=== PATIENT | female | born 1975 | race Caucasian/White ===

== ENCOUNTER 2018-05-10 07:41 | Emergency (ER) | payer SELFPAY ==
--- NOTE | 2018-05-10 08:54 | ER Document Report ---
Addendum entered and electronically signed by OTIS AMEZQUITA FNP-C 05/10/18 09:06: Discharge - Discharge Clinical Impression: Strep throat Condition: Stable Disposition: HOME, SELF-CARE Instructions: Fever ([facility]), Sore Throat ([facility]), Strep Throat ([facility]) Additional Instructions: Strep Throat Your sore throat is due to the streptococcus germ (strep throat). Strep throat usually makes you feel quite ill with fever and aches, headache, swollen sore throat, and tender bumps under the angles of the jaw. Strep throat requires antibiotic treatment. Although the sore throat may go away by itself, complications such as rheumatic fever, kidney disease, or throat abscess can occur. We usually prescribe antibiotics by mouth. Be sure to take the medicine until it's gone. If you stop early, the strep may come back. If you are vomiting, are severely ill, or can't remember to take pills, we can give you an antibiotic shot. Take acetaminophen or ibuprofen for pain and fever. Sip frequent clear liquids, or use popsicles or ice chips. Anesthetic sprays or lozenges may help. Make sure the air in the room is not too dry. Avoid using decongestants or antihistamines. Call the doctor if there is no improvement in three days, or if you have difficulty breathing, increasing throat pain, high fever, rash, or frequent vomiting. Your rapid strep is positive. Take antibiotics as directed, take prednisone as directed. Salt water gurgles. Change toothbrush after 2 days. Wash hands frequently. Eat yogurt or probiotics while taking antibiotics as can cause diarrhea or loose stool. Return immediately for any new or worsening symptoms. Follow up with primary care provider, call tomorrow to make followup appointment. Prescriptions: Amoxicillin Trihydrate [Amoxil 500 mg Capsule] 500 mg PO TID #30 capsule Prednisone [Deltasone 20 mg Tablet] 3 tab PO DAILY 5 Days #15 tablet Forms: Return to Work Referrals: ALESSANDRA CHENG MD [ACTIVE STAFF] - Follow up in 3-5 days Original Note: HPI - HPI Time Seen by Provider: 05/10/18 08:10 Pain Level: 4 Notes: 42-year-old female presents to ED with complaints of sore throat for the last 3 days, has become progressively worse. Reports pain with swallowing and eating. Has not tried any [id number] medications. Has been exposed to strep throat. Reports low-grade fevers, denies chills. has not tried any salt water gargles. Pain is 4 out of 10, constantly stabbing. Denies any drooling, trismus, difficulty speaking, difficulty swallowing. Denies chest pain,palpitations, shortness of breath, dyspnea, nausea, vomiting, diarrhea, abdominal pain, hematuria,blurred vision, double vision, loss of vision, speech changes, LH, dizziness, syncope, headaches, wheezing, URI, neck pain, weakness, bowel or bladder dysfunction, saddle anesthesia, numbness or tingling in bilateral upper or lower extremities equally, muscle paralysis, weakness in bilateral upper or lower extremities equally or rash. - EENT EENT: REPORTS: Sore Throat - REPRODUCTIVE Reproductive: DENIES: : Past Medical History - General Information source: Patient - Social History Smoking Status: Current Every Day Smoker Family History: Reviewed & Not Pertinent Patient has suicidal ideation: No Patient has homicidal ideation: No Pulmonary Medical History: Reports: Hx COPD Renal/ Medical History: Denies: Hx Kidney Stones, Hx Peritoneal Dialysis Past Surgical History: Reports: Hx Section, Hx Tubal Ligation - Immunizations Hx Diphtheria, Pertussis, Tetanus Vaccination: Yes Vertical Provider Document - CONSTITUTIONAL Agree With Documented VS: Yes Notes: PHYSICAL EXAMINATION: GENERAL: Well-appearing, well-nourished and in no acute distress. HEAD: Atraumatic, normocephalic. EYES: Pupils equal round and reactive to light, extraocular movements intact, conjunctiva are normal. ENT: TM intact with bilateral serous effusion, no erythema. Nares boggy bilaterally, oropharynx with erythema with exudates. Moist mucous membranes. NECK: Normal range of motion, supple without lymphadenopathy LUNGS: Breath sounds clear to auscultation bilaterally and equal. No wheezes rales or rhonchi. HEART: Regular rate and rhythm without murmurs ABDOMEN: Soft, nontender, nondistended abdomen. No guarding, no rebound. No masses appreciated. Female : deferred Musculoskeletal: Normal range of motion, no pitting or edema. No cyanosis. NEUROLOGICAL: Cranial nerves grossly intact. Normal speech, normal gait. Normal sensory, motor exams PSYCH: Normal mood, normal affect. SKIN: Warm, Dry, normal turgor, no rashes or lesions noted. - INFECTION CONTROL TRAVEL OUTSIDE OF THE [place] IN LAST 30 DAYS: No Course - Re-evaluation Re-evalutation: 42-year-old female presents to the ED for evaluation of sore throat, rapid strep did come back positive. Patient is afebrile slightly tachycardic otherwise fine, in no distress. Presentation of several days of sore throat in an otherwise well-appearing patient. Rapid strep is positive. History and exam are not consistent with a retropharyngeal abscess or peritonsillar abscess. Airway is patent. No difficulty handling oral secretions. Vitals within normal limits. At this time will discharge with return precautions and follow-up recommendations. Verbal discharge instructions given a the bedside and opportunity for questions given. Medication warnings reviewed. Patient is in agreement with this plan and has verbalized understanding of return precautions and the need for primary care follow-up in the next 24-48 hours. After performing a Medical Screening Examination, I estimate there is LOW risk for ACUTE CORONARY SYNDROME, PULMONARY EMBOLI, RESPIRATORY FAILURE, SEPSIS OR MENINGITIS, thus I consider the discharge disposition reasonable. I have reevaluated this patient multiple times and no significant life threatening changes are noted. The patient and I have discussed the diagnosis and risks, and we agree with discharging home with close follow-up. We also discussed returning to the Emergency Department immediately if new or worsening symptoms occur. We have discussed the symptoms which are most concerning (e.g., changing or worsening pain, trouble swallowing or breathing, neck stiffness, fever) that necessitate immediate return. - Vital Signs Vital signs: Temp Pulse Resp BP Pulse Ox 98.7 F 110 H 16 119/67 98 05/10/18 07:47 05/10/18 07:47 05/10/18 07:47 05/10/18 07:47 05/10/18 07:47 Discharge - Discharge Clinical Impression: Strep throat Condition: Stable Disposition: HOME, SELF-CARE Instructions: Strep Throat ([facility]), Fever ([facility]), Sore Throat ([facility]) Additional Instructions: Strep Throat Your sore throat is due to the streptococcus germ (strep throat). Strep throat usually makes you feel quite ill with fever and aches, headache, swollen sore throat, and tender bumps under the angles of the jaw. Strep throat requires antibiotic treatment. Although the sore throat may go away by itself, complications such as rheumatic fever, kidney disease, or throat abscess can occur. We usually prescribe antibiotics by mouth. Be sure to take the medicine until it's gone. If you stop early, the strep may come back. If you are vomiting, are severely ill, or can't remember to take pills, we can give you an antibiotic shot. Take acetaminophen or ibuprofen for pain and fever. Sip frequent clear liquids, or use popsicles or ice chips. Anesthetic sprays or lozenges may help. Make sure the air in the room is not too dry. Avoid using decongestants or antihistamines. Call the doctor if there is no improvement in three days, or if you have difficulty breathing, increasing throat pain, high fever, rash, or frequent vomiting. Your rapid strep is positive. Take antibiotics as directed, take prednisone as directed. Salt water gurgles. Change toothbrush after 2 days. Wash hands frequently. Eat yogurt or probiotics while taking antibiotics as can cause diarrhea or loose stool. Return immediately for any new or worsening symptoms. Follow up with primary care provider, call tomorrow to make followup appointment. Prescriptions: Amoxicillin Trihydrate [Amoxil 500 mg Capsule] 500 mg PO TID #30 capsule Prednisone [Deltasone 20 mg Tablet] 3 tab PO DAILY 5 Days #15 tablet Forms: Return to Work Referrals: ALESSANDRA CHENG MD [ACTIVE STAFF] - Follow up in 3-5 days
[2018-05-10 09:16] VITALS: BP 119/59
== END 2018-05-10 09:03 | disposition home or self-care (01) ==
LOC: ER 07:41
DX: J02.0 Streptococcal pharyngitis (principal); F17.200 Nicotine dependence, unspecified, uncomplicated; Z98.51 Tubal ligation status
CPT/HCPCS: 87880; 99283

== ENCOUNTER 2018-05-30 04:08 | Emergency (ER) | payer SELFPAY ==
[2018-05-30 04:20] VITALS: BP 144/79
== END 2018-05-30 04:35 | disposition left against medical advice (07) ==
LOC: ER 04:08
DX: Z53.21 Procedure and treatment not carried out due to patient leaving prior to being seen by health care provider (principal)

== ENCOUNTER 2018-06-04 02:56 | Emergency (ER) | payer SELFPAY ==
[2018-06-04] MEDS ORDERED: NORMAL SALINE 1000 ML 1,000 ML IV ONE ×2 (03:58→11:19)
[2018-06-04] MEDS ORDERED: LORAZEPAM INJ 2 MG/1 ML VIAL IV ONE ×6 (03:58→16:14)
--- NOTE | 2018-06-04 04:00 | ER Document Report ---
ED Substance Abuse / Acc. OD - General TRAVEL OUTSIDE OF THE [place] IN LAST 30 DAYS: No <JENS BOLIVAR - Last Filed: 06/04/18 08:12> <SHANTA BANUELOS - Last Filed: 06/05/18 05:47> - General Chief Complaint: Drug Abuse Stated Complaint: WITHDRAW Time Seen by Provider: 06/04/18 03:48 Primary Care Provider: [facility] [Provider Group] - Follow up tomorrow Notes: Patient is a 42-year-old female that comes emergency department for chief complaint of feeling bad after she snorted what she thought was heroin. She states that she has a dependency on methadone, ran out of methadone, so her friend of her heroin and she snorted this. She states afterwards she started feeling anxious, jittery, she vomited multiple times. She denies recreational drugs otherwise. She states that she actually is not prescribed methadone, she states that she used to be. She states now she has a dealer. She denies fever, she denies chest pain or abdominal pain, she states that she just feels like she cannot hold still and she is still nauseated. She also has a cramping sensation in her legs. (EJNS BOLIVAR) - Related Data Allergies/Adverse Reactions: No Known Allergies Allergy (Verified 06/04/18 04:34) Past Medical History - General Information source: Patient - Social History Smoking Status: Current Every Day Smoker Frequency of alcohol use: Occasional Drug Abuse: Heroin, Prescription drugs Lives with: Friend Family History: Reviewed & Not Pertinent Pulmonary Medical History: Reports: Hx COPD Renal/ Medical History: Denies: Hx Kidney Stones, Hx Peritoneal Dialysis Past Surgical History: Reports: Hx Section, Hx Tubal Ligation - Immunizations Hx Diphtheria, Pertussis, Tetanus Vaccination: Yes <JENS BOLIVAR - Last Filed: 06/04/18 08:12> Review of Systems - Review of Systems Constitutional: No symptoms reported EENT: No symptoms reported Cardiovascular: No symptoms reported Respiratory: No symptoms reported Gastrointestinal: No symptoms reported Genitourinary: No symptoms reported Female Genitourinary: No symptoms reported Musculoskeletal: No symptoms reported Skin: No symptoms reported Hematologic/Lymphatic: No symptoms reported Neurological/Psychological: See HPI <JENS BOLIVAR - Last Filed: 06/04/18 08:12> Physical Exam <JENS BOLIVAR - Last Filed: 06/04/18 08:12> - Vital signs Vitals: Temp Pulse Resp BP Pulse Ox 98.7 F 118 H 24 H 113/70 97 06/04/18 03:05 06/04/18 03:05 06/04/18 03:05 06/04/18 03:05 06/04/18 03:05 - Notes Notes: GENERAL: Awake, agitated, cannot hold still HEAD: Normocephalic, atraumatic. EYES: Pupils dilated. Equal and reactive to light. Extraocular movements intact. ENT: Oral mucosa moist, tongue midline. Oropharynx unremarkable. Airway patent. Nares patent, no nasal septal hematoma, TM's intact. NECK: Full range of motion. Supple. Trachea midline. LUNGS: Clear to auscultation bilaterally, no wheezes, rales, or rhonchi. No respiratory distress. HEART: Tachycardia, normal rhythm. No murmur. ABDOMEN: Soft, non-tender. Non-distended. Bowel sounds present in all 4 quadrants. GENITOURINARY: Deferred EXTREMITIES: Moves all 4 extremities spontaneously. No edema, normal radial and dorsalis pedis pulses bilaterally. No cyanosis. BACK: no cervical, thoracic, lumbar midline tenderness. NEUROLOGICAL: Alert and responsive. GCS of 15. PSYCH: Agitated, very restless, she will answer questions but cannot seem to relax or stop moving. (JENS BOLIVAR) Course - Laboratory Result Diagrams: 06/04/18 03:42 06/04/18 03:42 <JENS BOLIVAR - Last Filed: 06/04/18 08:12> - Laboratory Result Diagrams: 06/04/18 03:42 06/04/18 03:42 <SHANTA BANUELOS - Last Filed: 06/05/18 05:47> - Re-evaluation Re-evalutation: Patient is extremely restless, rolling all over the bed, she will give me a history but she persistently is groaning, crying, stating she needs to feel better. Patient will be given Ativan initially. Patient does not appear to have taken heroin tonight, her pupils are dilated, she is tachycardic and extremely restless and agitated. She states she is not sure what she might have snorted if it was not heroin. Patient persistently getting up, falling over. Patient was partially caught and fell against the glass door, patient given additional Ativan with no obvious effect. Given Haldol. Discussed with Dr. Banuelos. Patient got up and almost fell again, she was assisted at bedside to go to the bathroom, however it is getting up again. Dr. Banuelos recommends soft restraints. CBC shows mild leukocytosis. Nonspecific. Soft benign abdomen, clear lungs, no fever. Chemistry unremarkable. Urinalysis unremarkable. EKG does not show QT prolongation or concerning finding. Drug screen shows only opiates. Nonspecific. 06/04/18 I tried to discuss with patient at bedside, offered her to release the restraints if she was calm, stop screaming, was not getting up and falling. Patient agrees to this but if she is released she immediately jumps up, screaming, and falling. Therefore she was placed in stronger restraints. Discussed with Dr. Banuelos. Discussed with patient again but now she is just persistently demanding that she wants to get up and get around because she is "going crazy". Patient still writhing around. Appears to be under the influence of some sort of stimulant. She was given additional Haldol. 06/04/18 07:06 Patient had to be given more Ativan still. She finally resting calmly, heart rate is now 110. She will need to be monitored until effects of suspected stimulant wear off. 06/04/18 08:12 Patient still intermittently falling asleep, waking up and screaming. She remains conversational with making demands but she is not directable at all. Appears to still be under the influence of some sort of substance. Report and h andout given to Ephraim Rodriguez PA-C at this time. Dr. Ruiz aware of patient's situation/condition. (JENS BOLIVAR) 06/05/18 05:46 I have reevaluated the patient and made another note on the patient. She is awake alert and ambulate without difficulty. She is offered resources for drug abuse but patient prefers to go to [facility] on her own. She denies any psychiatric difficulties at this time denies depression or suicidal homicidal ideations is not on to the mental health at this time. Patient appears appropriate at this time and is ambulate well without any difficulties. She will be discharged home. Dictation of this chart was performed using voice recognition software; therefore, there may be some unintended grammatical errors. (SHANTA BANUELOS) - Vital Signs Vital signs: Temp Pulse Resp BP Pulse Ox 98.5 F 99 17 128/68 H 95 06/05/18 05:25 06/04/18 20:00 06/04/18 23:00 06/05/18 05:01 06/05/18 05:01 - Laboratory Laboratory results interpreted by me: 06/04/18 06/04/18 06/04/18 03:42 03:42 03:42 WBC 14.5 H RDW 15.6 H Absolute Neutrophils 10.1 H Creatinine 0.48 L Glucose 172 H Salicylates < 1.0 L Acetaminophen < 10 L Discharge <JENS BOLIVAR - Last Filed: 06/04/18 08:12> <SHANTA BANUELOS - Last Filed: 06/05/18 05:47> - Discharge Clinical Impression: Substance abuse Condition: Stable Disposition: HOME, SELF-CARE Additional Instructions: Do not take any medications that are not prescribed. Street/illegal/recreational drugs are very dangerous and continue use will result in your . Follow up with the referral listed for treatment of substance abuse issues, withdrawal, and additional mental health. Return for any concerning symptoms or something is not right. Forms: Return to Work Referrals: [facility] [Provider Group] - Follow up tomorrow
[2018-06-04 04:21] LABS: ABSOLUTE BASOPHILS # (AUTO) 0.1 10^3/uL (0.0-0.2); ABSOLUTE EOSINOPHILS # (AUTO) 0.1 10^3/uL (0.0-0.6); ABSOLUTE LYMPHOCYTES (AUTO) 3.5 10^3/uL (0.5-4.7); ABSOLUTE MONOCYTES (AUTO) 0.8 10^3/uL (0.1-1.4); ABSOLUTE NEUT (AUTO) 10.1 10^3/uL (1.7-8.2); BASOPHILS % (AUTO) 0.4 % (0-2); EOSINOPHILS % (AUTO) 0.5 % (0-6); HEMATOCRIT 37.6 % (36.0-47.0); HEMOGLOBIN 12.5 g/dL (12.0-15.5); LYMPHOCYTES % (AUTO) 24.2 % (13-45); MEAN CORPUSCULAR HEMOGLOBIN 27.6 pg (27.0-33.4); MEAN CORPUSCULAR HGB CONC 33.1 g/dL (32.0-36.0); MEAN CORPUSCULAR VOLUME 83 fl (80-97); MONOCYTES % (AUTO) 5.3 % (3-13); PLATELET COUNT 369 10^3/uL (150-450); RED BLOOD COUNT 4.51 10^6/uL (3.72-5.28); RED CELL DISTRIBUTION WIDTH 15.6 % (11.5-14.0); SEGMENTED NEUTROPHILS % (AUTO) 69.6 % (42-78); TOTAL CELLS COUNTED % (AUTO) 100 %; WHITE BLOOD COUNT 14.5 10^3/uL (4.0-10.5)
[2018-06-04 04:44] LABS: ALANINE AMINOTRANSFERASE 11 U/L (9-52); ALKALINE PHOSPHATASE 89 U/L (38-126); ANION GAP 9 (5-19); ASPARTATE AMINO TRANSFERASE 29 U/L (14-36); BILIRUBIN,DIRECT 0.3 mg/dL (0.0-0.4); BILIRUBIN,TOTAL 0.4 mg/dL (0.2-1.3); BLOOD UREA NITROGEN 11 mg/dL (7-20); CALCIUM 9.6 mg/dL (8.4-10.2); CARBON DIOXIDE 24 mmol/L (22-30); CHLORIDE 107 mmol/L (98-107); GLUCOSE 172 mg/dL (75-110); LIPASE 47.7 U/L (23-300); POTASSIUM 3.9 mmol/L (3.6-5.0); SODIUM 140.2 mmol/L (137-145); TOTAL PROTEIN 7.4 g/dL (6.3-8.2)
[2018-06-04] MEDS ORDERED: HALOPERIDOL LACTATE INJ 5 MG/1 ML VIAL IM ONE ×2 (04:59→05:45)
[2018-06-04 05:03] LABS: APPEARANCE,URINE SLIGHTLY-CLOUDY; BILIRUBIN,URINE NEGATIVE (NEGATIVE); COLOR,URINE STRAW; GLUCOSE, URINE NEGATIVE (NEGATIVE); KETONES,URINE NEGATIVE (NEGATIVE); LEUKOCYTE ESTERASE,URINE NEGATIVE (NEGATIVE); NITRITE,URINE NEGATIVE (NEGATIVE); PROTEIN,URINE NEGATIVE (NEGATIVE); UROBILINOGEN,URINE NEGATIVE mg/dL (<2.0)
[2018-06-04 05:25] LABS: URINE AMPHETAMINES SCREEN NEGATIVE; URINE BARBITURATES SCREEN NEGATIVE; URINE BENZODIAZEPINES SCREEN NEGATIVE; URINE COCAINE SCREEN NEGATIVE; URINE MARIJUANA (THC) SCREEN NEGATIVE; URINE METHADONE SCREEN NEGATIVE; URINE PHENCYCLIDINE SCREEN NEGATIVE
--- NOTE | 2018-06-04 07:01 | EKG REPORT ---
SEVERITY:- OTHERWISE NORMAL ECG - SINUS TACHYCARDIA : Confirmed by: Fab Baer 04-Jun-2018 07:00:33
[2018-06-04 07:44] LABS: ACETAMINOPHEN < 10 ug/mL (10-30); ALCOHOL < 10 mg/dL (NONE DETECTED); SALICYLATE < 1.0 mg/dL (2.0-20.0)
[2018-06-04] MEDS ORDERED: DIPHENHYDRAMINE HCL 50 MG/ML VIAL IV ONE (09:10)
[2018-06-04] MEDS ORDERED: ZIPRASIDONE MESYLATE INJ/PF 20 MG SDV IM ONE (16:50)
--- NOTE | 2018-06-04 19:29 | ER Document Report ---
Doctor's Note Notes: Patient is a 42-year-old female that presents to the emergency department for chief complaint of agitation, likely drug overdose. Patient was signed out to me, was found to be agitated, in four-point restraints, had been given Haldol, Ativan, and multiple doses to help control the patient's agitation. It is suspected that the patient had taken a sympathomimetic, in addition to heroin. PHYSICAL EXAMINATION: Vital signs reviewed, nursing noted reviewed. GENERAL: Patient appears rather agitated on exam, HEAD: Atraumatic, normocephalic. EYES: Eyes appear normal, extraocular movements intact, sclera anicteric, conjunctiva are normal. PERRLA ENT: nares patent, oropharynx clear without exudates. Moist mucous membranes. NECK: Normal range of motion, supple without lymphadenopathy LUNGS: Breath sounds clear to auscultation bilaterally and equal. No wheezes rales or rhonchi. HEART: Heart rate tachycardic, regular rhythm. ABDOMEN: Soft, nontender, normoactive bowel sounds. No rebound, guarding, or rigidity. No masses appreciated. EXTREMITIES: Nontender, good range of motion, no pitting or edema. NEUROLOGICAL: No focal neurological deficits. Moves all extremities spontaneously Motor and sensory grossly intact on exam. PSYCH: Agitated SKIN: Warm, Dry, normal turgor, no rashes or lesions noted on exposed skin MDM: Patient seen and examined, vital signs reviewed, patient was still tachycardic at times, agitated, screaming out intermittently, and then would be sleeping comfortably, and then scream out again, patient was given additional 2 mg of IV Ativan, and given 20 mg of IM Geodon. Patient did seem to be more calm and relaxed after this treatment. We will continue to monitor in the emergency department, and will work to slowly remove the patient's restraints.
[2018-06-04] MEDS ORDERED: KETOROLAC TROMETHAMINE INJ/PF 30 MG/1 ML SDV IV ONE (19:39)
[2018-06-05 05:35] VITALS: BP 128/68
--- NOTE | 2018-06-05 05:46 | ER Document Report ---
Doctor's Note Notes: 06/05/18 05:45 Patient is feeling much better. She is awake and alert. She is able to walk without difficulty. She is maintaining normal appropriate conversation. I did offer resources for help with drug abuse. Patient says that she wants to get injectable treatment center and said she would do this on her own. She says she does not want further resources at this time. She denies being suicidal homicidal. At this time patient is sober and acting appropriately therefore feels safe to be discharged home. She does not feel that she needs to speak with psychiatry and denies again any severe depression or suicidal homicidal thoughts. Patient will be discharged home as she requests. Dictation of this chart was performed using voice recognition software; therefore, there may be some unintended grammatical errors.
== END 2018-06-05 06:10 | disposition home or self-care (01) ==
LOC: ER 02:56
DX: F19.10 Other psychoactive substance abuse, uncomplicated (principal); R45.1 Restlessness and agitation; F41.9 Anxiety disorder, unspecified; F17.200 Nicotine dependence, unspecified, uncomplicated; J44.9 Chronic obstructive pulmonary disease, unspecified
CPT/HCPCS: 93005; 96376; 99285; 96372; 96361; 96374; 96375; 36415; 80307 ×4; 83690; 84703; 85025; 80053; 81001; 93010; J1200; J1630; J2060; J3486; J7030